=== PATIENT | male | born 1995 | race Caucasian/White ===

== ENCOUNTER 2022-06-14 17:46 | Emergency (ER) | payer BC, MEDICAID, SELFPAY ==
[2022-06-14 18:15] VITALS: BP 186/90; PULSE 106; RESP 18; TEMP 36.7; O2SAT 95
--- NOTE | 2022-06-14 18:39 | W.ED.ABDPA2 ---
HPI - Abdominal Pain General: Chief Complaint: Abdominal Pain Stated Complaint: N/V Stomach pains Time Seen by Provider: 06/14/22 18:39 History of Present Illness: Mr Qureshi is a 26-year-old gentleman with history of arthritis, gout, fatty liver presenting to the emergency department for concern over abnormal labs and abdominal pain. He reports approximately 6 days of generalized abdominal cramping with some radiation to left flank. He has had nausea and vomiting starting today and presented to PCP. He does note fever at home. He reports blood in his urine at PCP and patient was referred to the ER for further evaluation. Intensity symptoms is moderate. No testicular or penile pain. Course has persisted. No other specific changes in health, exacerbating, or alleviating factors identified. Onset (ago): day(s) Pain Consistency: constant Location: Periumbilical Severity: moderate Quality: cramping, aching and sharp Radiation: none Migration to: no migration Exacerbating factors: nothing Relieving factors: nothing Associated Symptoms: Reports fever(s), nausea and vomiting Review of Systems General: Reports: 10 or more systems reviewed and unremarkable except in HPI and below Const: Reports: fever(s) GI: Reports: nausea and vomiting [facility] ED PFSH: Medical History COVID-19 Family History Other Diabetes Hypertension Social History Smoking and tobacco status: former smoker Alcohol intake: former Adopted: No Physical Exam Const: COMMON NORMALS: alert GENERAL APPEARANCE: cooperative and well developed HENMT: COMMON NORMALS: normocephalic and atraumatic HEAD & SCALP: normocephalic and atraumatic Eye: COMMON NORMALS: conjunctivae normal CONJUNCTIVA: Yes conjunctivae normal SCLERA: sclerae normal Neck/C-Spine: COMMON NORMALS: supple GENERAL: Yes trachea midline Resp: COMMON NORMALS: normal respiratory effort EFFORT & INSPECTION: Yes able to speak in complete sentences Cardio: COMMON NORMALS: regular rate and regular rhythm RATE: regular rate RHYTHM: regular rhythm GI: COMMON NORMALS: Soft to palpation PALPATION: Yes Soft to palpation and No Tenderness to palpation present (GI) Extremity: GENERAL: Yes normal exam except as noted and No edema Neuro: COMMON NORMALS: moves all extremities SENSORIUM/ORIENTATION: Yes alert and No Orientation impaired Psych: COMMON NORMALS: mental status grossly normal and Normal thought process present THOUGHT PROCESS: Normal thought process present Course Vital Signs: Vital signs: Vital Signs Temperature 98.0 F 06/14/22 18:15 Pulse Rate 99 06/14/22 20:11 Respiratory Rate 16 06/14/22 20:11 Blood Pressure 163/86 06/14/22 20:11 Pulse Oximetry 99 06/14/22 20:11 Oxygen Delivery Me thod 06/14/22 20:11 MDM - Abdominal Pain Medical Decision Making 26-year-old male presenting to the emergency department due to concern over abdominal pain for 6 days as well as abnormal labs. Patient is nontoxic in appearance and no evidence of acute surgical abdomen Labs with leukocytosis and hemoconcentration, no significant metabolic derangement, transaminitis likely secondary to underlying known fatty liver disease. Hematuria without evidence of infection on urinalysis. CT imaging without clear pathology to explain symptoms. I did discuss incidental findings with the patient. During ED course patient treated with fluids and analgesia and feels improved. Most likely etiology of patient's symptoms is GI infection. Hematuria may be secondary to chronic use of Aleve or other underlying medical conditions though does not appear to need inpatient management at this time. Need for follow-up and repeat testing with possible further referrals discussed. The results of ED evaluation were discussed with the patient including prescriptions and/or symptomatic cares (if applicable) including appropriate and responsible use, followup plan, and return precautions. The patient verbalized understanding and felt safe for discharge. Medical Records I reviewed the patient's medical records. Lab Data I reviewed the patient's lab results. 06/14/22 18:50 06/14/22 18:50 Labs/Radiology: Radiology Impressions Abdomen/Pelvis CT 06/14/22 20:05 IMPRESSION: 1. Limited noncontrast examination without CT evidence of acute intra-abdominal or pelvic pathology. 2. Additional findings, as above. Laboratory Results WBC 14.7 10^3/uL (4.0-10.0) H 06/14/22 18:50 RBC 5.65 10^6/uL (4.1-5.3) H 06/14/22 18:50 Hgb 14.9 g/dL (11.7-16.6) 06/14/22 18:50 Hct 47.0 % (42.0-52.0) 06/14/22 18:50 MCV 83.2 fl (80-94) 06/14/22 18:50 MCH 26.4 pg (28.0-34.0) L 06/14/22 18:50 MCHC 31.7 g/dL (30.0-36.0) 06/14/22 18:50 RDW 13.1 % (12.1-15.1) 06/14/22 18:50 Plt Count 376 10^3/cmm (130-400) 06/14/22 18:50 MPV 9.5 fL (7.4-10.4) 06/14/22 18:50 Neut % (Auto) 65.0 % 06/14/22 18:50 Lymph % (Auto) 26.1 % 06/14/22 18:50 [place] % (Auto) 7.3 % 06/14/22 18:50 Eos % (Auto) 0.0 % 06/14/22 18:50 Baso % (Auto) 0.7 % 06/14/22 18:50 Neut # (Auto) 9.53 10^3/uL (1.8-7.7) H 06/14/22 18:50 Lymph # (Auto) 3.8 10^3/uL (0.8-4.8) 06/14/22 18:50 [place] # (Auto) 1.1 10^3/uL (0.2-0.9) H 06/14/22 18:50 Eos # (Auto) 0.0 10^3/uL (0.0-0.8) 06/14/22 18:50 Baso # (Auto) 0.1 10^3/uL (0.0-0.1) 06/14/22 18:50 Nucleated RBC % (auto) 0 % 06/14/22 18:50 Nucleated RBCs # 0.0 /100WBC 06/14/22 18:50 Sodium 144 mmol/L (136-145) 06/14/22 18:50 Potassium 4.1 mmol/L (3.5-5.1) 06/14/22 18:50 Chloride 104 mmol/L (98-107) 06/14/22 18:50 Carbon Dioxide 27 mmol/L (22-29) 06/14/22 18:50 Anion Gap 17.1 (5-19) 06/14/22 18:50 BUN 13 mg/dL (6-20) 06/14/22 18:50 Creatinine 0.8 mg/dL (0.7-1.2) 06/14/22 18:50 GFR Calculation 118.8 mL/min (90-130) 06/14/22 18:50 Glucose 183 mg/dL (65-115) H 06/14/22 18:50 Calculated Osmolality 303 mOsm/kg (285-295) H 06/14/22 18:50 Calcium 10.2 mg/dL (8.5-10.5) 06/14/22 18:50 Total Bilirubin 0.3 mg/dL (0.15-1.2) 06/14/22 18:50 AST 44 U/L (0-40) H 06/14/22 18:50 ALT 73 U/L (0-41) H 06/14/22 18:50 Alkaline Phosphatase 117 U/L (40-130) 06/14/22 18:50 Total Protein 8.1 g/dL (6.6-8.7) 06/14/22 18:50 Albumin 4.5 g/dL (3.5-5.2) 06/14/22 18:50 Globulin 3.6 g/dL (1.3-4.6) 06/14/22 18:50 Lipase 29 U/L (13-60) 06/14/22 18:50 Urine Color Yellow (Yellow) 06/14/22 19:50 Urine Appearance Clear (CLEAR) 06/14/22 19:50 Urine pH 5 (5-7) 06/14/22 19:50 Ur Specific [place] 1.025 (1.005-1.030) 06/14/22 19:50 Urine Protein 1+ (Negative) H 06/14/22 19:50 Urine Glucose (UA) Norm (Normal) 06/14/22 19:50 Urine Ketones Negative (Negative) 06/14/22 19:50 Urine Blood 2+ (Negative) H 06/14/22 19:50 Urine Nitrate Negative (Negative) 06/14/22 19:50 Urine Bilirubin Neg (Negative) 06/14/22 19:50 Urine Urobilinogen Norm mg/dL (Negative) 06/14/22 19:50 Ur Leukocyte Esterase Negative (Negative) 06/14/22 19:50 Urine RBC 0-4 /hpf (0-2) H 06/14/22 19:50 Urine WBC 0-4 /hpf (0-5) H 06/14/22 19:50 Ur Squamous Epith Cells 0-4 /hpf (0-5) H 06/14/22 19:50 Amorphous Sediment Not Reportable 06/14/22 19:50 Urine Bacteria Trace /hpf (NONE) 06/14/22 19:50 Discharge Plan Discharge Patient Disposition: Home Clinical Impression: Abdominal pain, Leukocytosis, Transaminitis, Hematuria Condition: Stable Prescriptions: New ondansetron 4 mg tablet,disintegrating 4 mg PO Q8H PRN (Reason: nausea and vomiting) Qty: 15 0RF azithromycin 500 mg tablet 500 mg PO DAILY 5 Days Qty: 5 0RF No Action mwixevlzvxzdsum-smfqvnxlv-HA [Bromfed DM] 2-30-10 mg/5 mL syrup 7.5 ml PO Q6H PRN (Reason: cold symptoms) Qty: 160 0RF prednisone 10 mg tablet 30 mg PO DAILY 5 Days Qty: 15 0RF Discharge Orders: Discharge ED (Routine); Ordered 06/14/22 Ordered By: Charli Flores Discharge Diet: Advance as tolerated and Clear Liquid Discharge Activity: Increase activity as tolerated Patient Instructions: Hematuria (ED), Non-Alcoholic Fatty Liver Disease (ED), Abdominal Pain (ED), Opioid Safety Activity Restrictions/Additional Instructions: Thank you for visiting the emergency department. You were seen and evaluated for abdominal pain. The exact cause of the symptoms is unclear. You do have fatty liver with enlarged liver and mild elevation of liver enzymes. There was hematuria however no evidence of urinary tract infection or kidney stone. Given associated symptoms and duration of symptoms I will treat with a course of antibiotics as well antinausea medication. Both the fatty liver and blood in urine requires further evaluation in the outpatient setting. This should be followed by your primary care provider with consideration for referral for GI specialist and urologist/learning and development administrator. Please return to the emergency department for uncontrolled symptoms or anything else that you are concerned about and feel needs emergency department evaluation. Coding Level of Care Code ED Publication Specialist for Maren Tran
[2022-06-14 19:02] LABS: Basophils # 0.1 10^3/uL (0.0-0.1); Basophils % 0.7 %; Hemoglobin 14.9 g/dL (11.7-16.6); Lymphocytes # 3.8 10^3/uL (0.8-4.8); Lymphocytes % 26.1 %; Mean Corpuscular HGB Conc 31.7 g/dL (30.0-36.0); Mean Corpuscular Hemoglobin 26.4 pg (28.0-34.0); Mean Corpuscular Volume 83.2 fl (80-94); Mean Platelet Volume 9.5 fL (7.4-10.4); Monocytes # 1.1 10^3/uL (0.2-0.9); Monocytes % 7.3 %; Neutrophils # 9.53 10^3/uL (1.8-7.7); Nucleated Red Blood Cells % 0 %; Platelet Count 376 10^3/cmm (130-400); Red Blood Count 5.65 10^6/uL (4.1-5.3); Red Cell Distribution Width 13.1 % (12.1-15.1); White Blood Count 14.7 10^3/uL (4.0-10.0)
[2022-06-14] MEDS: sodium chloride 0.9% 1,000 ML 999 ML IV (19:15)
[2022-06-14 19:18] VITALS: BP 159/98; PULSE 95; RESP 16; O2SAT 97
[2022-06-14 19:20] LABS: Alanine Aminotransferase 73 U/L (0-41); Albumin Level 4.5 g/dL (3.5-5.2); Alkaline Phosphatase 117 U/L (40-130); Anion Gap 17.1 (5-19); Aspartate Amino Transferase 44 U/L (0-40); Blood Urea Nitrogen 13 mg/dL (6-20); Calcium 10.2 mg/dL (8.5-10.5); Carbon Dioxide 27 mmol/L (22-29); Chloride 104 mmol/L (98-107); Globulin 3.6 g/dL (1.3-4.6); Glomerular Filtration Rate 118.8 mL/min (90-130); Glucose 183 mg/dL (65-115); Lipase 29 U/L (13-60); Osmolality Calculated 303 mOsm/kg (285-295); Potassium 4.1 mmol/L (3.5-5.1); Sodium 144 mmol/L (136-145); Total Bilirubin 0.3 mg/dL (0.15-1.2); Total Protein 8.1 g/dL (6.6-8.7)
[2022-06-14 20:02] LABS: Add Urine Microscopic? YES; Bilirubin Urine Neg (Negative); Blood Urine 2+ (Negative); Glucose Urine UA Norm (Normal); Ketones Urine Negative (Negative); Leukocyte Esterase Urine Negative (Negative); Nitrate Urine Negative (Negative); Protein Urine 1+ (Negative); Specific Gravity, Urine 1.025 (1.005-1.030); Urine Appearance Clear (CLEAR); Urine Color Yellow (Yellow); Urobilinogen Urine Norm (Negative); pH Urine 5 (5-7)
[2022-06-14 20:04] LABS: Bacteria Urine TRACE /hpf; RBC Urine 0-4 /hpf (0-2); Squamous Epithelial Cell Urine 0-4 /hpf (0-5); WBC Urine 0-4 /hpf (0-5)
--- NOTE | 2022-06-14 20:05 | CTR_ITS ---
PROCEDURE INFORMATION: Exam: CT Abdomen And Pelvis Without Contrast Exam date and time: 06/14/2022 8:23 PM Age: 26 years old Clinical indication: Abdominal pain; Flank; Left; Additional info: Abd pain, L flank pain, hematuria TECHNIQUE: Imaging protocol: Computed tomography of the abdomen and pelvis without contrast. Axial, coronal and sagittal reformatted images were created and reviewed. Radiation optimization: All CT scans at this facility use at least one of these dose optimization techniques: automated exposure control; mA and/or kV adjustment per patient size (includes targeted exams where dose is matched to clinical indication); or iterative reconstruction. REPORTING DATA: Count of CT and Cardiac NM exams in prior 12 months: This patient has received 0 known CTs and 0 known cardiac nuclear medicine studies in the 12 months prior to the current study. COMPARISON: CT abdomen pelvis w con* [id number] 03/28/2020 1:57 PM RADIATION DOSE METRICS: Total DLP (mGy-cm): 1379.73 FINDINGS: Liver: Moderate hepatomegaly. Diffuse hepatic steatosis. Gallbladder and bile ducts: No radiodense gallstones. No biliary ductal dilatation. Pancreas: Unremarkable. Spleen: Moderate splenomegaly. Adrenal glands: Normal. No mass. Kidneys and ureters: No mass. No radiodense calculi. No hydronephrosis. Stomach and bowel: No bowel wall thickening. No obstruction. No pneumatosis. Appendix: Normal. Intraperitoneal space: No free fluid. No organized fluid collection. No free air. Vasculature: Unremarkable. No aneurysm. Lymph nodes: Small mesenteric lymph nodes, nonspecific in appearance. No pathologically enlarged lymph nodes. Urinary bladder: Unremarkable as visualized. Reproductive: Unremarkable. Bones/joints: No acute osseous abnormality. Degenerative changes. Soft tissues: Small, fat containing umbilical hernia. CT/CT kidney stone [id number] IMPRESSION: 1. Limited noncontrast examination without CT evidence of acute intra-abdominal or pelvic pathology. 2. Additional findings, as above.
[2022-06-14 20:08] VITALS: RESP 16; O2SAT 99
[2022-06-14] MEDS: morphine 4 mg/mL SDV 1 mL IVP (20:08)
[2022-06-14 20:11] VITALS: BP 163/86; PULSE 99; RESP 16; O2SAT 99
--- NOTE | 2022-06-15 17:05 | DCPLANNER ---
TCM called patient due to no primary care physician - patient stated that he sees Ciara Joya at [place]
== END 2022-06-14 21:50 | disposition home or self-care (01) ==
PROVIDERS: Emergency Provider Emergency Medicine
DX: R10.33 Periumbilical pain (principal); D72.829 Elevated white blood cell count, unspecified; R74.01 Elevation of levels of liver transaminase levels; R31.9 Hematuria, unspecified; Z86.16 Personal history of COVID-19; Z87.891 Personal history of nicotine dependence
CPT/HCPCS: 74176; 80053; 81001; 83690; 85025; 96361; 96374; 99285; J2270; J7030

== ENCOUNTER 2024-08-19 18:44 | Emergency (ER) | payer BC, MEDICAID, SELFPAY ==
[2024-08-19 19:05] VITALS: BP 182/88; PULSE 99; RESP 16; TEMP 36.7; O2SAT 94; BMI 59.1
[2024-08-19 20:13] LABS: Basophils # 0.1 10^3/uL (0.0-0.1); Basophils % 0.5 %; Hematocrit 46.4 % (37-53); Lymphocytes # 2.9 10^3/uL (0.8-4.8); Lymphocytes % 19.9 %; Mean Corpuscular HGB Conc 32.3 g/dL (30-55); Mean Corpuscular Hemoglobin 28.1 pg (27-33); Mean Corpuscular Volume 87.1 fl (82-101); Mean Platelet Volume 9.7 fL (7.4-10.4); Monocytes % 6.7 %; Neutrophils # 10.62 10^3/uL (1.8-7.7); Neutrophils % 72.2 %; Nucleated Red Blood Cells % 0 %; Platelet Count 295 10^3/cmm (157-399); Red Blood Count 5.33 10^6/uL (3.85-5.65); Red Cell Distribution Width 12.9 % (12.1-15.1); White Blood Count 14.72 10^3/uL (3.29-11.43)
[2024-08-19 20:32] LABS: Alanine Aminotransferase 168 U/L (0-41); Albumin Level 3.6 g/dL (3.5-5.2); Alkaline Phosphatase 119 U/L (40-130); Anion Gap 15.2 (5-19); Aspartate Amino Transferase 91 U/L (0-40); Blood Urea Nitrogen 11 mg/dL (6-20); C Reactive Protein 42.1 mg/L (0.0-4.9); Calcium 9.6 mg/dL (8.5-10.5); Carbon Dioxide 26 mmol/L (22-29); Chloride 98 mmol/L (98-107); Creatinine Clr Calc Pharmacy 303.4585; Globulin 3.8 g/dL (1.3-4.6); Glomerular Filtration Rate 162.9 mL/min (90-130); Glucose 312 mg/dL (65-115); Lipase 24 U/L (13-60); Osmolality Calculated 291 mOsm/kg (285-295); Potassium 4.2 mmol/L (3.5-5.1); Sodium 135 mmol/L (136-145); Total Bilirubin 0.3 mg/dL (0.15-1.2); Total Protein 7.4 g/dL (6.6-8.7)
[2024-08-19 21:13] VITALS: BP 171/93; PULSE 105; O2SAT 92
[2024-08-19 21:20] LABS: Erythrocyte Sedimentation Rate 19 mm/hr (0-10)
[2024-08-19 21:30] VITALS: BP 173/76; PULSE 107; O2SAT 92
--- NOTE | 2024-08-19 21:45 | CTR_ITS ---
PROCEDURE INFORMATION: Exam: CT Abdomen And Pelvis With Contrast Exam date and time: 08/19/2024 10:03 PM Age: 28 years old Clinical indication: Abdominal pain; Generalized; Diffuse abd pain with bloody diarrhea; Additional info: Abd pain bloody diarrhea TECHNIQUE: Imaging protocol: Computed tomography of the abdomen and pelvis with contrast. Radiation optimization: All CT scans at this facility use at least one of these dose optimization techniques: automated exposure control; mA and/or kV adjustment per patient size (includes targeted exams where dose is matched to clinical indication); or iterative reconstruction. Contrast material: OMNI 350; Contrast volume: 125 ml; Contrast route: INTRAVENOUS (IV); COMPARISON: CT kidney stone [id number] 06/14/2022 8:23 PM RADIATION DOSE METRICS: Total DLP (mGy-cm): 1341.63 FINDINGS: Liver: Hepatomegaly. Hepatic steatosis. Gallbladder and biliary ducts: Normal. No calcified stones. No ductal dilation. Pancreas: Normal. No ductal dilation. Spleen: Spleen enlarged at least 14 cm. Adrenal glands: Normal. No mass. Kidneys and ureters: Normal. No hydronephrosis. Stomach and bowel: Prominent fluid in the stomach and small bowel, please correlate for a gastroenteritis. Appendix: No evidence of appendicitis. Intraperitoneal space: Unremarkable. No free air. No significant fluid collection. Vasculature: Unremarkable. No abdominal aortic aneurysm. Lymph nodes: Several prominent subcentimeter mesenteric lymph nodes, largely in the right lower quadrant, nonspecific. Urinary bladder: Unremarkable as visualized. Reproductive: Unremarkable as visualized. Bones/joints: Unremarkable. No acute fracture. Soft tissues: Unremarkable. CT/CT abdomen pelvis w con* [id number] IMPRESSION: 1. Prominent fluid in the stomach and small bowel, please correlate for a gastroenteritis. 2. Several prominent subcentimeter mesenteric lymph nodes, largely in the right lower quadrant, nonspecific. 3. Hepatomegaly. 4. Hepatic steatosis. 5. Spleen enlarged at least 14 cm.
[2024-08-19] MEDS: iohexol 350 mg/mL 500 mL Btl (per mL) IV (22:01)
[2024-08-19 22:18] LABS: Bilirubin Urine Negative (Negative); Blood Urine Trace (Negative); Glucose Urine UA 3+ (Normal); Ketones Urine Negative (Negative); Leukocyte Esterase Urine Negative (Negative); Nitrate Urine Negative (Negative); Protein Urine 3+ (Negative); Urine Appearance Clear (CLEAR); Urine Color Yellow (Yellow); pH Urine 5.5 (5-7)
[2024-08-19 22:19] LABS: Specific Gravity, Urine 1.037 (1.005-1.030)
[2024-08-19 22:23] LABS: Add Urine Microscopic? YES; Bacteria Urine None Seen /hpf; Hyaline Casts Urine 2.05 /lpf; RBC Urine 0-2 /hpf (0-2); Squamous Epithelial Cell Urine 0-5 /hpf (0-5); WBC Urine 0-5 /hpf (0-5)
[2024-08-19 22:30] VITALS: BP 165/65; PULSE 102; O2SAT 92
--- NOTE | 2024-08-19 22:59 | W.ED.ABDPA2 ---
HPI - Abdominal Pain General: Chief Complaint: Abdominal Pain Stated Complaint: abd pain blood in stool Time Seen by Provider: 08/19/24 21:07 History of Present Illness: 28 year old male patient who has been dealing with abdominal pain, and diarrhea on and off for a year. He presents tonight with worsening of his diarrhea, and appearance of red blood in his stool on and off for the past two to three days. Blood seemed to be worse today. No fever. No vomiting. He has minimal belly pain, but it seems to worsen with episodes of bloody diarrhea. He has not been evaluated for this prior. Related Data Previous Rx's ?Medication ?Instructions ?Recorded ondansetron 4 mg disintegrating 4 mg PO Q8H PRN nausea and 06/14/22 tablet vomiting #15 tabs albuterol sulfate 90 mcg/actuation 2 puff inhalation Q6H PRN 06/04/23 aerosol inhaler shortness of breath or wheezing #8.5 grams rxngmmtmtrvrfsb-nfoqpdaefiovfkr-GO 7.5 ml PO Q6H PRN cold symptoms 06/04/23 2 mg-30 mg-10 mg/5 mL oral syrup #160 mL (Bromfed DM) doxycycline hyclate 100 mg tablet 100 mg PO BID 10 days #20 tabs 06/04/23 prednisone 10 mg tablet 30 mg (3 x 10 mg) PO DAILY 5 days 06/04/23 #15 tabs ciprofloxacin HCl 500 mg tablet 500 mg PO BID #14 tabs 08/19/24 (Cipro) methylprednisolone 4 mg tablets in See Rx Instructions PO .COMPLEX 08/19/24 a dose pack (Medrol (Benny)) #21 ea metronidazole 500 mg tablet 500 mg PO Q8H #21 tabs 08/19/24 Allergies Allergy/AdvReac Type Severity Reaction Status Date / Time No Known Allergies Allergy Verified 06/04/23 17:22 [facility] ED PFSH: Medical History COVID-19 Family History Other Diabetes Hypertension Social History Smoking and tobacco/nicotine status: former use of tobacco/nicotine Alcohol intake: former Substance/Drug Use: never Adopted: No Physical Exam Const: COMMON NORMALS: no acute distress GENERAL APPEARANCE: cooperative; not ill appearing and not frail appearing HENMT: COMMON NORMALS: normocephalic, atraumatic and Normal external nose present HEAD & SCALP: normocephalic and atraumatic FACE & SINUS: normal facial exam and face symmetric NOSE: Normal external nose present Eye: COMMON NORMALS: Equal, round and reactive pupils present and EOMs intact bilaterally PUPIL: Yes Equal, round and reactive pupils present Neck/C-Spine: GENERAL: Yes trachea midline Chest: CHEST: Yes Symmetrical chest wall rise Resp: COMMON NORMALS: normal respiratory effort, No retractions, No use of accessory muscles and clear to auscultation bilaterally AUSCULTATION: clear to auscultation bilaterally Cardio: COMMON NORMALS: regular rate and regular rhythm RATE: regular rate RHYTHM: regular rhythm GI: COMMON NORMALS: Normal to inspection, nondistended, normoactive bowel sounds present Extremity: COMMON NORMALS: no pedal edema Neuro: UNIQUE COMA SCALE: document GCS findings Unique coma scale eye opening: Spontaneous Unique coma scale verbal response: Orientated Unique coma scale motor response: [place] commands [place] coma scale total score: 15 SENSORY EXAM: Yes extremities (intact) Psych: COMMON NORMALS: speech normal SPEECH: Yes normal speech Skin: COMMON NORMALS: no rashes or lesions noted GENERAL SKIN EXAM: no rashes or lesions noted Course Vital Signs: Vital signs: Vital Signs Temperature 98.0 F 08/19/24 19:05 Pulse Rate 103 H 08/19/24 23:46 Respiratory Rate 16 08/19/24 19:05 Blood Pressure 136/75 08/19/24 23:46 Pulse Oximetry 91 08/19/24 23:46 Oxygen Delivery Me thod Room Air 08/19/24 22:30 MDM - Abdominal Pain Medical Decision Making Vitals are stable. He is not febrile. He does have a Leukocytosis of 14. BMP Reveals hyperglycemia of 312. Liver enzymes are minimally elevated. CRP is 42. Is lipase is 24. Urinalysis shows trace blood, and glucose. CT scan shows small bowel fluid indicative of enteritis. He has some sub centimeter mesenteric lymph nodes as well. He'll be treated for a bacterial enteritis given the blood. Ciprofloxacin and metronidazole. He is given steroids as well, for inflammatory changes. We will ask case management to make him a follow up appointment with surgery for further bowel evaluation. He will also require referral the primary care for his apparent hyperglycemia. To return for any worsening symptoms despite treatment. Lab Data 08/19/24 20:00 08/19/24 20:00 Labs/Radiology: Radiology Impressions Abdomen/Pelvis CT 08/19/24 21:45 IMPRESSION: 1. Prominent fluid in the stomach and small bowel, please correlate for a gastroenteritis. 2. Several prominent subcentimeter mesenteric lymph nodes, largely in the right lower quadrant, nonspecific. 3. Hepatomegaly. 4. Hepatic steatosis. 5. Spleen enlarged at least 14 cm. Laboratory Results WBC 14.72 10^3/uL (3.29-11.43) H 08/19/24 20:00 RBC 5.33 10^6/uL (3.85-5.65) 08/19/24 20:00 Hgb 15.00 g/dL (11.27-16.99) 08/19/24 20:00 Hct 46.4 % (37-53) 08/19/24 20:00 MCV 87.1 fl (82-101) 08/19/24 20:00 MCH 28.1 pg (27-33) 08/19/24 20:00 MCHC 32.3 g/dL (30-55) 08/19/24 20:00 RDW 12.9 % (12.1-15.1) 08/19/24 20:00 Plt Count 295 10^3/cmm (157-399) 08/19/24 20:00 MPV 9.7 fL (7.4-10.4) 08/19/24 20:00 Neut % (Auto) 72.2 % 08/19/24 20:00 Lymph % (Auto) 19.9 % 08/19/24 20:00 [place] % (Auto) 6.7 % 08/19/24 20:00 Eos % (Auto) 0.0 % 08/19/24 20:00 Baso % (Auto) 0.5 % 08/19/24 20:00 Neut # (Auto) 10.62 10^3/uL (1.8-7.7) H 08/19/24 20:00 Lymph # (Auto) 2.9 10^3/uL (0.8-4.8) 08/19/24 20:00 [place] # (Auto) 1.0 10^3/uL (0.2-0.9) H 08/19/24 20:00 Eos # (Auto) 0.0 10^3/uL (0.0-0.8) 08/19/24 20:00 Baso # (Auto) 0.1 10^3/uL (0.0-0.1) 08/19/24 20:00 Nucleated RBC % (auto) 0 % 08/19/24 20:00 Nucleated RBCs # 0.0 /100WBC 08/19/24 20:00 ESR 19 mm/hr (0-10) H 08/19/24 20:00 Sodium 135 mmol/L (136-145) L 08/19/24 20:00 Potassium 4.2 mmol/L (3.5-5.1) 08/19/24 20:00 Chloride 98 mmol/L (98-107) 08/19/24 20:00 Carbon Dioxide 26 mmol/L (22-29) 08/19/24 20:00 Anion Gap 15.2 (5-19) 08/19/24 20:00 BUN 11 mg/dL (6-20) 08/19/24 20:00 Creatinine 0.6 mg/dL (0.7-1.2) L 08/19/24 20:00 GFR Calculation 162.9 mL/min (90-130) H 08/19/24 20:00 Glucose 312 mg/dL (65-115) H 08/19/24 20:00 Calculated Osmolality 291 mOsm/kg (285-295) 08/19/24 20:00 Calcium 9.6 mg/dL (8.5-10.5) 08/19/24 20:00 Total Bilirubin 0.3 mg/dL (0.15-1.2) 08/19/24 20:00 AST 91 U/L (0-40) H 08/19/24 20:00 ALT 168 U/L (0-41) H 08/19/24 20:00 Alkaline Phosphatase 119 U/L (40-130) 08/19/24 20:00 C-Reactive Protein 42.1 mg/L (0.0-4.9) H 08/19/24 20:00 Total Protein 7.4 g/dL (6.6-8.7) 08/19/24 20:00 Albumin 3.6 g/dL (3.5-5.2) 08/19/24 20:00 Globulin 3.8 g/dL (1.3-4.6) 08/19/24 20:00 Lipase 24 U/L (13-60) 08/19/24 20:00 Urine Color Yellow (Yellow) 08/19/24 21:55 Urine Appearance Clear (CLEAR) 08/19/24 21:55 Urine pH 5.5 (5-7) 08/19/24 21:55 Ur Specific [place] 1.037 (1.005-1.030) H 08/19/24 21:55 Urine Protein 3+ (Negative) A 08/19/24 21: Urine Glucose (UA) 3+ (Normal) H 08/19/24 21: Urine Ketones Negative (Negative) 08/19/24 21: Urine Blood Trace (Negative) A 08/19/24 21:55 Urine Nitrate Negative (Negative) 08/19/24 21: Urine Bilirubin Negative (Negative) 08/19/24 21: Urine Urobilinogen 1.0 mg/dL (Negative) 08/19/24 21:55 Ur Leukocyte Esterase Negative (Negative) 08/19/24 21:55 Urine RBC 0-2 /hpf (0-2) 08/19/24 21:55 Urine WBC 0-5 /hpf (0-5) 08/19/24 21:55 Ur Squamous Epith Cells 0-5 /hpf (0-5) 08/19/24 21:55 Amorphous Sediment Not Reportable 08/19/24 21:55 Urine Bacteria None seen /hpf (NONE) 08/19/24 21: Hyaline Casts 2.05 /lpf 08/19/24 21:55 All radiology interpretation(s) finalized by discharge Discharge Plan Discharge Patient Disposition: Home Clinical Impression: Gastroenteritis Condition: Stable Prescriptions: New ciprofloxacin HCl [Cipro] 500 mg tablet 500 mg PO BID Qty: 14 0RF metronidazole 500 mg tablet 500 mg PO Q8H Qty: 21 0RF methylprednisolone [Medrol (Benny)] 4 mg tablets,dose pack See Rx Instructions .ROUTE .COMPLEX Qty: 21 0RF Rx Instructions: orally per package directions No Action dcqmntunttpbuyd-xbmbsshdv-UC [Bromfed DM] 2-30-10 mg/5 mL syrup 7.5 ml PO Q6H PRN (Reason: cold symptoms) Qty: 160 0RF prednisone 10 mg tablet 30 mg PO DAILY 5 Days Qty: 15 0RF albuterol sulfate 90 mcg/actuation HFA aerosol inhaler 2 puff inhalation Q6H PRN (Reason: shortness of breath or wheezing) Qty: 8.5 0RF doxycycline hyclate 100 mg tablet 100 mg PO BID 10 Days Qty: 20 0RF ondansetron 4 mg tablet,disintegrating 4 mg PO Q8H PRN (Reason: nausea and vomiting) Qty: 15 0RF Discharge Orders: Discharge ED (Routine); Ordered 08/19/24 Ordered By: Omid Bruce Referrals: Fabián Montalvo MD [Physician, General Surgery] - 7-10 days Misty Pascual FNP [Primary Care Provider, Nurse Practitioner] - 1-3 days Patient Instructions: Gastroenteritis (ED), Opioid Safety, Pain Management Activity Restrictions/Additional Instructions: Antibiotics and steroids as directed. Case management will contact you this week regarding a surgery follow-up because of your ongoing problems with bloody diarrhea. You may need a colonoscopy at some point. Return for worsening bleeding despite treatment, vomiting liquids or medications, fever, any other concerning symptoms. Print Language: South Korean Coding Level of Care Code ED Specialist Field Engineer for Maren Tran
[2024-08-19] MEDS: metroNIDAZOLE 500 MG Tablet PO (23:11)
[2024-08-19] MEDS: ciprofloxacin 500 mg Tablet PO (23:11)
[2024-08-19] MEDS: dexamethasone 10 mg/mL INJ IVP (23:14)
[2024-08-19 23:46] VITALS: BP 136/75; PULSE 103; O2SAT 91
== END 2024-08-19 23:48 | disposition home or self-care (01) ==
PROVIDERS: Emergency Provider Emergency Medicine; PCP Nurse Practitioner Family
DX: K52.9 Noninfective gastroenteritis and colitis, unspecified (principal); Z87.891 Personal history of nicotine dependence
CPT/HCPCS: 36415; 74177; 80053; 81001; 83690; 85025; 85651; 86140; 96374; 99285; J1100; J9999

== ENCOUNTER → 2024-10-04 07:56 | Outpatient (BNVA) | payer BC, MEDICAID, SELFPAY | PROVIDERS: PCP Nurse Practitioner Family; Visit Provider Podiatrist Foot & Ankle Surgery | DX: M79.672 Pain in left foot (principal); M76.822 Posterior tibial tendinitis, left leg | CPT/HCPCS: 73630 ==

== ENCOUNTER 2024-11-08 08:07 | Day surgery (SDC) | payer BC, MEDICAID, SELFPAY ==
[2024-11-08 08:42] VITALS: BP 143/94; PULSE 93; RESP 16; TEMP 36.5; O2SAT 95
[2024-11-08 08:44] VITALS: BMI 55.2
--- NOTE | 2024-11-08 08:45 | P.HP_ITS ---
Same Day Surgery H&P Indication for Procedure/HPI DATE OF PROCEDURE: November 08, 2024 CHIEF COMPLAINT/INDICATIONFOR SURGICAL PROCEDURE: Lower GI bleeding PREOP DIAGNOSIS: Lower GI bleed PLANNED PROCEDURE: Operation Date: 11/08/24 10:20 Proposed Procedures p EGD with Biopsy [id number] G0105, K92.2 Z12.11(Not Applicable) - Fabián Montalvo MD s Colonoscopy(Not Applicable) - Fabián Montalvo MD Medications/Allergies* Home Medications ?Medication ?Instructions ?Recorded ?Confirmed ?Type No Known Home Medications 11/05/24 08/0 07/27 History Allergies/Adverse Reactions Allergy/AdvReac Type Severity Reaction Status Date / Time No Known Allergies Allergy Verified 11/05/24 08:41 Pertinent History/Comorbid Conditions* Medical History (Updated 08/27/24 @ 00:00 by MONTSERRAT Wilson) COVID-19 Family History (Updated 05/30/20 @ 11:05 by Bree Castañeda LPN) Diabetes Hypertension Social History Smoking and tobacco/nicotine status: never used tobacco/nicotine Alcohol intake: former Substance/Drug Use: never Adopted: No Pertinent Exam Findings alert, oriented x 3, clear to auscultation bilaterally and regular rate & rhythm Recommendations Surgery/Procedure today Other Plans: After a complete history, physical examination and review of all available clinical data. I have offer colonoscopy as indicated by the current guidelines. I have discussed all the risks and benefits of the colonoscopy. Including, the risk of perforation requiring surgical intervention and ostomy creation, rectal bleeding, incomplete colonoscopy in one of every 20 patients requiring repat endoscopy in 1 year, missed polyps, need for additional procedures. Patient shows understanding and wishes to proceed. Coding Level of Care Code Acute Code for Chg Fwd
--- NOTE | 2024-11-08 09:00 | P.ANESASSM_ITS ---
Pre-Anesthetic Assessment Height/Weight: Height 1.78 m Weight 174.633 kg Temp Pulse Resp BP Pulse Ox O2 Del Method 97.7 F 93 16 143/94 95 Room Air 11/08/24 08:42 11/08/24 08:42 11/08/24 08:42 11/08/24 08:42 11/08/24 08:42 11/08/24 08:42 Preop Diagnosis: Lower GI bleed Operation Date: 11/08/24 10:20 Proposed Procedures p EGD with Biopsy [id number] G0105, K92.2 Z12.11(Not Applicable) - Fabián Montalvo MD s Colonoscopy(Not Applicable) - Fabián Montalvo MD Familial anesthetic complications: none Was Beta Stacey taken within 24 hours: N/A Was Clonidine taken within 24 hours: N/A Last intake: Intake Last Liquid Date 11/07/24 Last Liquid Time 22:45 Last Solid Date 11/08/24 Last Solid Time 22:00 Social No alcohol and No tobacco Exam alert, oriented x 3, clear to auscultation bilaterally and regular rate & rhythm Airway Submandibular: within normal limits Cervical ROM: within normal limits Mallampati: Class II Dentition: full History/ROS No significant history except as noted and No significant complaints Pulmonary None reported CV/HEM Hypertension None reported Hepatic None reported Fatty Liver GI Gastroesophageal Reflux Disease Metabolic Diabetes Mellitus and Morbid Obesity [facility] None reported Neuropsych None reported Anesthetic Plan ASA status: 3 Anesthesia: MAC Risk of > 500 ml blood loss (7ml/kg in children): No Medications/Allergies Home Medications ?Medication ?Instructions ?Recorded ?Confirmed ?Last Taken ?Type No Known Home Medications 11/05/24 0807/27 Unknown History Allergies Allergy/AdvReac Type Severity Reaction Status Date / Time No Known Allergies Allergy Verified 11/05/24 08:41 Current Medications Generic Name Dose Route Start Last Admin Trade Name Freq PRN Reason Stop Dose Admin Sodium Chloride 1,000 mls @ 15 mls/hr 11/08/24 08:30 11/08/24 08:53 Sodium Chloride 0.9% IV 11/09/24 08:29 15 mls/hr .Q24H PRN Administration COLONOSCOPY FLUIDS PFSH Anesthesia Medical History COVID-19 Family History Other Diabetes Hypertension Social History Smoking and tobacco/nicotine status: never used tobacco/nicotine Alcohol intake: former Substance/Drug Use: never Adopted: No
--- NOTE | 2024-11-08 10:22 | PC.NURSE ---
cecum time 1018
[2024-11-08 10:29] VITALS: BP 179/74; PULSE 83; RESP 20; TEMP 36.3; O2SAT 94
[2024-11-08 10:46] VITALS: BP 138/76; PULSE 80; RESP 18; O2SAT 94
--- NOTE | 2024-11-08 12:19 | ANE.PACU2 ---
Inpatient post-anesthesia follow up: Airway intact: Yes Vital signs: Temperature 97.3 F Pulse Rate 80 Respiratory Rate 18 Blood Pressure 138/76 Pulse Oximetry 94 Oxygen Delivery Me thod Room Air Oxygen Flow Rate Fraction of Inspir ed Oxygen Hydration adequate: Yes Nausea and vomiting: No Pain level: 1 Mental status: Baseline
== END 2024-11-08 11:10 | disposition home or self-care (01) ==
PROVIDERS: Family Provider Family Medicine; PCP Nurse Practitioner Family; Visit Provider Surgery
PROC: 0DJD8ZZ Inspection of Lower Intestinal Tract, Via Natural or Artificial Opening Endoscopic (ICD-10-PCS; CPT 45378; 2024-11-08 10:20)
DX: K92.2 Gastrointestinal hemorrhage, unspecified (principal); K64.8 Other hemorrhoids; K21.9 Gastro-esophageal reflux disease without esophagitis; E11.9 Type 2 diabetes mellitus without complications; E66.01 Morbid (severe) obesity due to excess calories; Z68.43 Body mass index [BMI] 50.0-59.9, adult
CPT/HCPCS: 36416; 45380; 82962; 88305; J2704; J7030